=== PATIENT | female | born 1965 | race Caucasian/White ===

== ENCOUNTER 2020-05-29 17:30 | Emergency (ER) | payer OTHER ==
[~2020-05-29] VITALS: Ht 162.6 cm; Wt 106.6 kg
[2020-05-29 17:50] VITALS: Ht 162.6 cm; Wt 106.6 kg
[2020-05-29 18:56] LABS: BASOPHIL % 0.3 % (0-2)
[2020-05-29 18:58] LABS: PLATELET COUNT 581 x10^3mcL (130-400); RED CELL DISTRIBUTION WIDTH 14.7 % (11.5-14.5)
[2020-05-29 19:06] LABS: CALCIUM 9.6 mg/dL (8.5-10.1); CARBON DIOXIDE 26.6 mmol/L (21-32); CHLORIDE SERUM 96 mmol/L (98-107); CREATININE SERUM 0.8 mg/dL (0.6-1.0); GFR1 > 60 mL/min; GLUCOSE SERUM 94 mg/dL (74-106); POTASSIUM SERUM 3.4 mmol/L (3.5-5.1); SODIUM SERUM 129 mmol/L (136-145)
[2020-05-29 19:19] LABS: ALKALINE PHOSPHATASE 109 U/L (46-116); ALT/SGPT 23 U/L (14-59); AST/SGOT 23 U/L (15-37); BILIRUBIN TOTAL 0.7 mg/dL (0.20-1.00); LIPASE 54 IU/L (73-393); MAGNESIUM 2.1 mg/dL (1.8-2.4); T4(THYROXINE) 10.1 ug/dL (4.7-13.3); TOTAL PROTEIN, SERUM 7.4 g/dL (6.4-8.2)
[2020-05-29 19:20] LABS: ALBUMIN 3.2 g/dL (3.4-5.0); CHOLESTEROL 124 mg/dL (<200); HDL CHOLESTEROL 33 mg/dL (40-60)
[2020-05-29 20:42] VITALS: BP 138/87
== END 2020-05-29 20:10 | disposition home or self-care (01) ==
LOC: ED 17:30
PROVIDERS: Emergency Medicine
DX: R22.33 Localized swelling, mass and lump, upper limb, bilateral (principal); D64.9 Anemia, unspecified; E46 Unspecified protein-calorie malnutrition; I10 Essential (primary) hypertension; E66.8 Other obesity; Z68.41 Body mass index [BMI] 40.0-44.9, adult; Z20.828 Contact with and (suspected) exposure to other viral communicable diseases
CPT/HCPCS: 82962; 83880; Q0092